=== PATIENT | female | born 1975 | race Caucasian/White ===

== ENCOUNTER 2016-10-18 12:15 | Emergency (ER) | payer SELFPAY ==
[2016-10-18] MEDS ORDERED: HYDROCODONE/ACETAMINOPHEN 5-325 MG TABLET PO ONE (13:08)
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
[2016-10-18 15:21] VITALS: BP 110/60
== END 2016-10-18 14:40 | disposition home or self-care (01) ==
LOC: ER 12:15
DX: S89.92XA Unspecified injury of left lower leg, initial encounter (principal); M79.89 Other specified soft tissue disorders; X58.XXXA Exposure to other specified factors, initial encounter; F17.210 Nicotine dependence, cigarettes, uncomplicated
CPT/HCPCS: 99283; 73562; L1830

== ENCOUNTER 2016-11-29 13:33 | Emergency (ER) | payer SELFPAY ==
[2016-11-29 13:39] VITALS: BP 109/59
[2016-11-29] MEDS ORDERED: IBUPROFEN 800 MG TABLET PO ONE (14:25)
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
== END 2016-11-29 15:55 | disposition home or self-care (01) ==
LOC: ER 13:33
DX: S92.502A Displaced unspecified fracture of left lesser toe(s), initial encounter for closed fracture (principal); W11.XXXA Fall on and from ladder, initial encounter; Z79.899 Other long term (current) drug therapy; F17.210 Nicotine dependence, cigarettes, uncomplicated
CPT/HCPCS: 99283